=== PATIENT | male | born 1940 | race Caucasian/White ===

== ENCOUNTER 2020-07-27 21:22 | Emergency (ER) | payer MEDICARE, OTHER ==
[~2020-07-27] VITALS: Ht 175.3 cm; Wt 79.0 kg
[~2020-07-27 21:22] MED LIST: ALB0.5UD IH; FAMO-128 PO; IPRA3AMP9 NEB; LEVO500T2 PO; PRED5TAB49 PO; dextrose 50%-water 50ml dispensing syringe IV ONE; epiNEPHrine 0.1mg/ml 10ml syringe ONE; sodium bicarbonate (8.4%) 1 mEq/ml syringe ONE
--- NOTE | 2020-07-27 21:26 | NUR ---
Bedside ultrasound being performed by MD Bryant who reports zero wall movement.
--- NOTE | 2020-07-27 21:29 | NUR ---
Family has arrived at bedside and is being debriefed by MD Brynat.
--- NOTE | 2020-07-27 21:31 | NUR ---
Pt's is at bedside who has given verbal permission to cease the code blue.
--- NOTE | 2020-07-27 23:06 | NUR ---
PT picked up by MINDA and Nadine MADSEN. Pt belongings that went with patient include Wedding gold colored band on Left hand, 1 pair socks, sweat pants, underwear, and flannel shirt.
== END 2020-07-27 23:17 | disposition expired ==
LOC: ER 21:22
DX: I46.9 Cardiac arrest, cause unspecified (principal); R06.02 Shortness of breath; J44.9 Chronic obstructive pulmonary disease, unspecified; M19.90 Unspecified osteoarthritis, unspecified site; Z87.440 Personal history of urinary (tract) infections; Z87.01 Personal history of pneumonia (recurrent); Z90.89 Acquired absence of other organs; Z90.49 Acquired absence of other specified parts of digestive tract; Z98.890 Other specified postprocedural states; Z72.89 Other problems related to lifestyle; Z79.2 Long term (current) use of antibiotics; Z79.899 Other long term (current) drug therapy
CPT/HCPCS: 36680; 92950; 94799; 99285; J0171; 99291